=== PATIENT | female | born 1985 | race Two or more races ===

== ENCOUNTER 2024-03-26 14:49 | Emergency (ER) | payer SELFPAY ==
[2024-03-26 14:54] VITALS: BP 120/68; PULSE 56; TEMP 37.1; O2SAT 100; BMI 37.8
[2024-03-26] MEDS: KETOROLAC TROMETHAMINE 60 MG/2 ML VIAL IM (15:23)
--- NOTE | 2024-03-26 15:56 | ED_ITS ---
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, is coming to us after she started having for the last 2 to 3 weeks numbness and tingling in both hands, he feels tightness at her wrist on both sides, she mentioned that the pain sometimes at worst is not getting better and wake her up from sleep The patient also mentioned that she she was diagnosed with something similar in the right hand only almost 7 years ago Related Data Previous Rx's ?Medication ?Instructions ?Recorded acetaminophen 650 mg 650 mg PO Q8H PRN pain #20 tabs 03/26/24 tablet,extended release (Tylenol 8 Hour) prednisone 20 mg tablet 40 mg (2 x 20 mg) PO DAILY 5 days 03/26/24 #10 tabs Allergies Allergy/AdvReac Type Severity Reaction Status Date / Time No Known Drug Allergies Allergy Verified 03/26/24 15:00 Review of Systems ROS Status of ROS 10 or more systems reviewed and unremark able except as noted in history and below PFSH PFSH Social History Little interest or pleasure in doing things: not at all Feeling down, depressed, or hopeless: not at all Exam Narrative Exam Narrative: Nurses notes and vital signs reviewed and patient is not hypoxic. Upper extremity examination: Good blood supply and no vascular injury detected the patient have a good radial pulse bilaterally, the patient was induced by over flexion of the wrist bilaterally] General: Well-appearing and in no apparent distress. Skin: Warm, dry, no pallor noted. No rash. Head: Normocephalic, atraumatic. Neck: Supple, non-tender. Constitutional Vital Signs, click to edit/add: Last Vital Signs Temp 98.7 F 03/26/24 14:54 Pulse 56 L 03/26/24 14:54 Resp 20 03/26/24 14:54 BP 120/68 03/26/24 14:54 Pulse Ox 100 03/26/24 14:54 O2 Del Method Room Air 03/26/24 14:54 Course Vital Signs Vital signs: Vital Signs Temperature 98.7 F 03/26/24 14:54 Pulse Rate 56 L 03/26/24 14:54 Respiratory Rate 20 02/10/25 14:54 Blood Pressure 120/68 03/26/24 14:54 Pulse Oximetry 100 03/26/24 14:54 Oxygen Delivery Method Room Air 03/26/24 14:54 Temperature 98.7 F 03/26/24 14:54 Pulse Rate 56 L 03/26/24 14:54 Respiratory Rate 20 03/26/24 14:54 Blood Pressure 120/68 03/26/24 14:54 Pulse Oximetry 100 03/26/24 14:54 Oxygen Delivery Method Room Air 03/26/24 14:54 MDM - Extremity (Nontraumatic) MDM Narrative Medical decision making narrative: The patient presented to us with a typical carpal tunnel syndrome, the patient was started on prednisone and Tylenol for pain control Toradol in the ER Bilateral wrist splint The patient was instructed about resting her upper extremities and follow-up with orthopedic as outpatient for further evaluation and more treatment The patient is to follow up with primary care physician in next 2-3 days or to return to the emergency department should any of the signs or symptoms worsen or new symptoms develop. The patient agrees with the following Diagnosis and Treatment plan and the patient will be discharged home. Discharge Plan Discharge Chief Complaint: Extremity Problem, Nontraumatic Clinical Impression: Carpal tunnel syndrome on both sides Patient Disposition: Home, Self-Care Time of Disposition Decision: 15:20 Condition: Good Prescriptions / Home Meds: New prednisone 20 mg tablet 40 mg PO DAILY 5 Days Qty: 10 0RF acetaminophen [Tylenol 8 Hour] 650 mg tablet extended release 650 mg PO Q8H PRN (Reason: pain) Qty: 20 0RF Print Language: Japanese Instructions: Carpal Tunnel Syndrome (DC), Paresthesia (ED) Referrals: [facility] [Primary Care Provider] - 1 week Alexandre Enamorado MD [Physician] - 1 week Discharge Date/Time: 03/26/24 15:31
== END 2024-03-26 15:31 | disposition home or self-care (01) ==
PROVIDERS: Emergency Provider Emergency Medicine
DX: G56.03 Carpal tunnel syndrome, bilateral upper limbs (principal)
CPT/HCPCS: 96372; 99284; J1885